=== PATIENT | female | born 1965 | race Caucasian/White ===

== ENCOUNTER 2017-12-06 20:13 | Emergency (ER) | payer BC ==
[2017-12-06] MEDS ORDERED: IBUPROFEN 400 MG TABLET ONE (20:38)
[2017-12-06] MEDS ORDERED: CYCLOBENZAPRINE HCL 10 MG TABLET ONE (20:39)
== END 2017-12-06 21:22 | disposition home or self-care (01) ==
LOC: EDH 20:13
DX: S43.492A Other sprain of left shoulder joint, initial encounter (principal); Z98.890 Other specified postprocedural states; V49.49XA Driver injured in collision with other motor vehicles in traffic accident, initial encounter; Y93.89 Activity, other specified; Y92.89 Other specified places as the place of occurrence of the external cause; Y99.8 Other external cause status
CPT/HCPCS: 73030